=== PATIENT | male | born 1975 | race Two or more races ===

== ENCOUNTER 2022-12-06 14:27 | Outpatient (CLI) | payer OTHER | END 2022-12-06 14:31 | disposition home or self-care (01) | LOC: LAB 14:27 | PROVIDERS: ATTEND Urology | DX: R97.20 Elevated prostate specific antigen [PSA] (principal) ==

== ENCOUNTER 2022-12-22 07:44 | Outpatient (CLI) | payer OTHER | END 2022-12-22 07:58 | disposition home or self-care (01) | LOC: SONOGRAMA 07:44 | PROVIDERS: ATTEND Urology | DX: C61 Malignant neoplasm of prostate (principal); N41.1 Chronic prostatitis; D29.1 Benign neoplasm of prostate; R97.20 Elevated prostate specific antigen [PSA] ==

== ENCOUNTER 2025-04-24 07:31 | Outpatient (CLI) | payer OTHER | END 2025-04-24 07:38 | disposition home or self-care (01) | LOC: SONOGRAMA 07:31 | PROVIDERS: ATTEND Urology | DX: C61 Malignant neoplasm of prostate (principal); N40.1 Benign prostatic hyperplasia with lower urinary tract symptoms; R97.20 Elevated prostate specific antigen [PSA] ==